=== PATIENT | male | born 1975 | race African-American/Black ===

== ENCOUNTER 2022-09-28 15:23 | Inpatient (IN) | payer OTHER ==
[2022-09-28 16:31] VITALS: BMI 22.8
[2022-09-28] MEDS ORDERED: POLYETHYLENE GLYCOL (HEALTHYLAX) 3350 17 GM PACKET PO PRN (18:05)
[2022-09-28] MEDS ORDERED: BENZOCAINE/MENTHOL (CHLORASEPTIC ) LOZENGE MM PRN (18:05)
[2022-09-28] MEDS ORDERED: guaiFENesin 600 MG TABLET.ER (FP) PO PRN (18:05)
[2022-09-28] MEDS ORDERED: ONDANSETRON *ODT* 4 MG TABLET SL PRN (18:05)
[2022-09-28] MEDS ORDERED: MAGNESIUM HYDROX 2400MG/30ML ORAL SUSPENSION 30 ML CUP PO PRN (18:05)
[2022-09-28] MEDS ORDERED: NICOTINE POLACRILEX 2 MG GUM BUC PRN (18:05)
[2022-09-28] MEDS ORDERED: BENZONATATE 200 MG CAPSULE PO PRN (18:05)
[2022-09-28] MEDS ORDERED: MAG HYDROX/AL HYDROX/SIMETH 30 ML UNIT-DOSE CUP PO PRN (18:05)
[2022-09-28] MEDS ORDERED: LOPERAMIDE HCL 2 MG CAPSULE PO PRN (18:05)
[2022-09-28] MEDS ORDERED: IBUPROFEN 400 MG TABLET (FP) PO PRN (18:05)
[2022-09-28] MEDS ORDERED: BISMUTH SUBSALICYLATE 524 MG/30 ML PO PRN (18:05)
[2022-09-28] MEDS ORDERED: P-EPHED 60MG/TRIPROLIDI 2.5MG TABLET PO PRN (18:05)
[2022-09-28] MEDS ORDERED: DICYCLOMINE HCL 10 MG CAPSULE PO PRN (18:05)
[2022-09-28] MEDS ORDERED: diazePAM 5 MG TABLET ONE (20:53)
[2022-09-28] MEDS ORDERED: hydrOXYzine PAMOATE 25 MG CAPSULE (FP) PO ONE (20:54)
[2022-09-28] MEDS: diazePAM 5 MG TABLET PO PRN (20:56)
[2022-09-28] MEDS: hydrOXYzine PAMOATE 25 MG CAPSULE (FP) PO PRN (20:56)
[2022-09-28] MEDS: THIAMINE HCL 100 MG TABLET (FP) PO SCH (21:34)
[2022-09-28] MEDS ORDERED: MELATONIN 5 MG TABLETS PO SCH (22:00)
[2022-09-28] MEDS: IBUPROFEN 600 MG TABLET (FP) PO PRN (22:14)
[2022-09-28] MEDS: METHOCARBAMOL 500 MG TABLET PO PRN (22:15)
[2022-09-29] MEDS: diazePAM 5 MG TABLET PO PRN (08:36)
[2022-09-29] MEDS ORDERED: chlordiazePOXIDE HCL 25 MG CAPSULE PO PRN (09:02)
[2022-09-29] MEDS: PRENATAL VITAMINS W/ FOLIC ACID TABLET (FP) PO SCH (10:42)
[2022-09-29] MEDS: chlordiazePOXIDE HCL 25 MG CAPSULE PO SCH ×3 (10:45→22:33)
[2022-09-29] MEDS: ACETAMINOPHEN 325 MG TABLET (FP) PO PRN (17:35)
[2022-09-29] MEDS ORDERED: MELATONIN 5 MG TABLETS PO SCH (22:00)
[2022-09-29] MEDS: THIAMINE HCL 100 MG TABLET (FP) PO SCH (22:33)
[2022-09-29] MEDS: hydrOXYzine PAMOATE 25 MG CAPSULE (FP) PO PRN (22:33)
[2022-09-29] MEDS: METHOCARBAMOL 500 MG TABLET PO PRN (22:33)
[2022-09-30] MEDS: chlordiazePOXIDE HCL 25 MG CAPSULE PO SCH ×4 (05:32→22:37)
[2022-09-30] MEDS: METHOCARBAMOL 500 MG TABLET PO PRN ×4 (05:33→23:29)
[2022-09-30] MEDS: IBUPROFEN 600 MG TABLET (FP) PO PRN ×3 (08:43→23:29)
[2022-09-30] MEDS: PRENATAL VITAMINS W/ FOLIC ACID TABLET (FP) PO SCH (10:27)
[2022-09-30 15:57] LABS: HEMOGLOBIN 14.6 GM/dL (11.7-16.9); MCH 29.9 pg (25.7-33.7); MCHC 32.5 g/dl (32.0-35.9); MEAN PLT VOLUME 8.9 fl (7.5-11.1); PLATELET COUNT 144 10^3/uL (134-434); RBC 4.89 M/mm3 (4.00-5.60); RDW 13.7 % (11.9-15.9); WHITE BLOOD COUNT 3.8 K/mm3 (4.0-10.0)
[2022-09-30 15:58] LABS: POTASSIUM 4.3 mmol/L (3.5-5.1)
[2022-09-30 16:03] LABS: ALBUMIN 3.5 g/dl (3.4-5.0); BLOOD UREA NITROGEN 6.7 mg/dL (7-18); CALCIUM 9.4 mg/dL (8.5-10.1)
[2022-09-30 16:06] LABS: CREATININE 0.8 mg/dL (0.55-1.3)
[2022-09-30 16:07] LABS: TOT PROT 7.6 g/dl (6.4-8.2)
[2022-09-30 16:34] LABS: BILIRUBIN,TOTAL 1.1 mg/dL (0.2-1)
[2022-09-30] MEDS: SUVOREXANT 10 MG TABLET PO PRN (22:36)
[2022-09-30] MEDS: THIAMINE HCL 100 MG TABLET (FP) PO SCH (22:36)
[2022-10-01] MEDS: chlordiazePOXIDE HCL 25 MG CAPSULE PO SCH ×4 (05:42→22:53)
[2022-10-01] MEDS: METHOCARBAMOL 500 MG TABLET PO PRN ×2 (05:42→22:52)
[2022-10-01] MEDS: ACETAMINOPHEN 325 MG TABLET (FP) PO PRN ×2 (05:50→17:50)
[2022-10-01] MEDS: PRENATAL VITAMINS W/ FOLIC ACID TABLET (FP) PO SCH (10:30)
[2022-10-01] MEDS: SUVOREXANT 10 MG TABLET PO PRN (22:44)
[2022-10-01] MEDS: THIAMINE HCL 100 MG TABLET (FP) PO SCH (22:53)
[2022-10-02] MEDS ORDERED: chlordiazePOXIDE HCL 10 MG CAPSULE PO PRN
[2022-10-02] MEDS: chlordiazePOXIDE HCL 10 MG CAPSULE PO SCH ×4 (05:48→22:45)
[2022-10-02] MEDS: PRENATAL VITAMINS W/ FOLIC ACID TABLET (FP) PO SCH (10:42)
[2022-10-02] MEDS: METHOCARBAMOL 500 MG TABLET PO PRN ×2 (10:43→23:00)
[2022-10-02] MEDS: IBUPROFEN 600 MG TABLET (FP) PO PRN (10:43)
[2022-10-02] MEDS: SUVOREXANT 10 MG TABLET PO PRN (23:00)
[2022-10-02] MEDS: THIAMINE HCL 100 MG TABLET (FP) PO SCH (23:00)
[2022-10-03] MEDS ORDERED: chlordiazePOXIDE HCL 10 MG CAPSULE PO SCH (05:00)
[2022-10-03 10:03] VITALS: BP 120/75; PULSE 72; RESP 19; TEMP 97.7
[2022-10-03] MEDS: PRENATAL VITAMINS W/ FOLIC ACID TABLET (FP) PO SCH (10:36)
[2022-10-04] MEDS ORDERED: chlordiazePOXIDE HCL 10 MG CAPSULE PO ONE (05:00)
== END 2022-10-03 11:35 | disposition home or self-care (01) | DRG 775 ==
LOC: YASAS 15:23 → Y3N 20:50
PROVIDERS: ADMIT Allergy & Immunology; ATTEND Surgery
PROC: HZ2ZZZZ Detoxification Services for Substance Abuse Treatment (ICD-10-PCS; principal; 2022-09-28)
DX: F10.230 Alcohol dependence with withdrawal, uncomplicated (principal); F17.210 Nicotine dependence, cigarettes, uncomplicated; F10.282 Alcohol dependence with alcohol-induced sleep disorder; R74.8 Abnormal levels of other serum enzymes
CPT/HCPCS: 36415; 80053; 85027; 86780; 87635; 87811